=== PATIENT | male | born 1935 | race Caucasian/White ===

== ENCOUNTER → 2018-08-06 12:45 | Outpatient (CLI) | payer MEDICARE, SELFPAY ==
[2018-07-20 11:15] VITALS: BMI 38.9
--- NOTE | 2018-08-06 13:02 | ECHOCS_ITS ---
Reason For Study: CAD Procedure This was a 2D Doppler, Color Flow transthoracic echocardiogram. Contrast injection was performed. Exam performed in department. Left Ventricle Mildly dilated left ventricle. The estimated ejection fraction is 55-60 %. Stage 1 diastolic dysfunction. Septal motion consistent with IVCD. Posterior-Basal: Mildly hypokinetic. Infero-Basal: Mildly hypokinetic. Right Ventricle Mildly dilated right ventricle. Normal systolic function. Atria The left atrium is moderately enlarged. Normal right atrium. Normal atrial septum. Mitral Valve The mitral valve is structurally normal. No prolapse or stenosis seen. Tricuspid Valve Normal tricuspid valve. Mild (1+) tricuspid valve insufficiency. Right ventricular systolic pressure estimated to be 33 mmHg. Aortic Valve Trisinus/trileaflet aortic valve. Immobile non coronary cusp. Mild aortic stenosis. Pulmonic Valve Normal pulmonic valve. Great Vessels Normal aortic root. Normal arch. Normal inferior vena cava. Inferior vena cava collapse with sniff. Pericardium/Pleural No pericardial effusion. Medication 22 gauge I.V. with prn adaptor inserted into right arm. Diluted definity 3ml given slow IV push to enhance endocardial definition. MMode/2D Measurements & Calculations LVIDd: 5.0 cm IVSd: 1.1 cm LVOT diam: 2.2 cm LVIDs: 3.5 cm LVPWd: 1.2 cm RVDd: 4.1 cm FS: 30.3 % LVOT area: 3.9 cm2 Ao root diam: 3.4 cm LAV(MOD-bp): 110.9 ml Aortic Valve Planimetry: 1.7 cm2 LAV(MOD-bp) Indexed: 46.5 ml/m2 LAV(MOD-sp2): 80.8 ml LAV(MOD-sp4): 119.6 ml LA dimension(2D): 4.9 cm LA A4 area: 34.1 cm2 RA A4 area: 21.0 cm2 Time Measurements MV dec time: 0.34 sec Doppler Measurements & Calculations MV E max casper: 54.1 cm/sec Lat Peak E' Casper: 8.0 cm/sec Med Peak E' Casper: 4.2 cm/sec MV A max casper: 64.8 cm/sec E/E' lat: 6.8 E/E' med: 12.9 MV E/A: 0.84 Ao V2 max: 200.6 cm/sec LV V1 max: 87.0 cm/sec SV(LVOT): 66.0 ml Ao max P.1 mmHg LV V1 max P.0 mmHg Ao V2 mean: 149.2 cm/sec LV V1 mean P.8 mmHg Ao mean P.7 mmHg LV V1 mean: 64.3 cm/sec Ao V2 VTI: 40.9 cm LV V1 VTI: 17.0 cm BRITTANY(I,D): 1.6 cm2 BRITTANY(V,D): 1.7 cm2 PA V2 max: 140.9 cm/sec TR max casper: 259.4 cm/sec TR max P.2 mmHg Interpretation Summary Mildly dilated left ventricle. The estimated ejection fraction is 55-60 %. Stage 1 diastolic dysfunction. Posterior-Basal: Mildly hypokinetic Infero-Basal: Mildly hypokinetic Mildly dilated right ventricle. The left atrium is moderately enlarged. Mild (1+) tricuspid valve insufficiency. Right ventricular systolic pressure estimated to be 33 mmHg. Immobile non coronary cusp Mild aortic stenosis. The study was technically difficult. Contrast injection was performed. There is no comparison study available. Ordering Physician: Oscar Gonzales Referring Physician: JESSENIA FERRARI Performed By: Pia Romero, ADAM, RVT
== END ==
PROVIDERS: Referring Provider Internal Medicine Cardiovascular Disease; Visit Provider Internal Medicine Cardiovascular Disease
DX: R55 Syncope and collapse (principal)
CPT/HCPCS: 93306; Q9957; A4216; C8929

== ENCOUNTER → 2019-01-21 | Outpatient (CLI) | payer MEDICARE, SELFPAY ==
[2019-01-05 13:50] VITALS: BMI 39.9
--- NOTE | 2019-01-21 12:52 | STEWCON_ITS ---
Reason For Study: CAD Stress Results Protocol: Christian Protocol Maximum Predicted HR: 138 bpm Target HR: 117 bpm % Maximum Predicted HR: 77 % DurationHeart Rate Stage (mm:ss) (bpm) BP Comment Baseline 82 148/86No Chest Pain; Diluted Definity 4 ML Given Christian Protocol Stage I 3:00 94 160/78No Chest Pain; Moderate Dyspnea Christian Protocol Stage II 0:38 106 / No Chest Pain; Moderate to Severe Dyspnea Recovery 92 140/84No Chest Pain Stress Duration: 3:38 mm:ss Maximum Stress HR: 106 bpm METS: 5 Baseline Echocardiogram Findings The estimated ejection fraction is 25 %. Stress Echo Wall motion Data Resting WM Intermediate WM Stress WM Resting Wall Motion Wall Motion Stress Posterior-Basal: Severely Mid-Lateral : Mildly hypokinetic. hypokinetic. Anterior Mcdonough : Dyskinetic. Infero-Basal: Severely Hypokinetic. EKG Data The baseline ECG displays normal sinus rhythm. The patient exercised according to the regular Christian protocol for a total duration of 3:38. The maximum heart rate attained was 106 beats per minute. This was 77% of maximum predicted heart rate. The patient exercised into stage 2 of the Christian protocol. During stress, there were no ST or T wave changes noted to suggest ischemia. No clinical angina was noted. Doppler Measurements & Calculations TR max brenna: 359.8 cm/sec TR max P.8 mmHg Interpretation Summary The estimated ejection fraction is 25 %. Abnormal, submaximal treadmill echocardiogram. Positive for ischemia by echocardiographic criteria. No anginal symptoms noted. Moderate PVCs noted. Appropriate blood pressure response to exercise. Below average exercise capacity for age. Patient appeared to develop mid anterior lateral and apical hypokinesis superimposed on baseline severe inferior and posterior hypokinesis. Baseline ejection fraction about 25% which appeared to dilated peak exercise to maximum contractility of around 20%. Poor echo windows requiring Definity agent. Test terminated due to dyspnea. No complications. Patient referred to our office for elective left and right heart catheterization. The study was technically difficult. Contrast injection was performed. Ordering Physician: Oscar Gonzales Referring Physician: Burt De La Cruz Performed By: Angy Garcia RDCS
== END | disposition home or self-care (01) ==
LOC: CVS 12:45
PROVIDERS: Referring Provider Internal Medicine Cardiovascular Disease; Visit Provider Internal Medicine Cardiovascular Disease
DX: I25.10 Atherosclerotic heart disease of native coronary artery without angina pectoris (principal); R55 Syncope and collapse; I10 Essential (primary) hypertension; E78.5 Hyperlipidemia, unspecified
CPT/HCPCS: 93017; 93350; Q9957; A4216; C8928

== ENCOUNTER 2019-01-29 06:05 | Day surgery (SDC) | payer MEDICARE, SELFPAY ==
[2019-01-05 13:50] VITALS: BMI 39.9
--- NOTE | 2019-01-22 16:00 | RAD_ITS ---
STUDY: X-RAY CHEST REASON FOR EXAM: Male, 83 years old. Shortness of breath, pulmonary hypertension TECHNIQUE: Frontal and lateral views of the chest were performed COMPARISON: None. FINDINGS: The lungs are clear and expanded. There is no demonstrated pleural abnormality. There is mild to moderate cardiomegaly. Pacemaker is present in the right upper chest with 2 intact leads terminating in the right atrium and right ventricle. Pulmonary khoa are enlarged. Normal visualized thoracic spine. Normal visualized ribs, clavicles, and shoulders. There is no demonstrated abnormality of the visualized soft tissue structures of the upper abdomen. RAD/Chest PA and Lateral IMPRESSION: 1. Cardiomegaly. 2. No acute findings. Electronically Signed: Charo Nicole, at 16:18 EDT Tel , Service support ,
[2019-01-22 17:13] VITALS: BMI 39.9
[2019-01-22 17:24] LABS: International Normalized Ratio 1.1; Prothrombin Time (Protime)PT. 14.1 SECONDS (11.7-14.9)
[2019-01-22 17:25] LABS: Anion Gap 9 (5-15); BUN 28 mg/dL (7-18); BUN/Creat Ratio 16.2 RATIO (10-20); Calcium,Total 8.8 mg/dL (8.5-10.1); Chloride 108 mmol/L (98-107); Creatinine, Serum 1.73 mg/dL (0.70-1.30); EST Glomerular Filtration Rate 40 mL/min (>60); Est Glom Filt Rate - Afr Amer 49 mL/min (>60); Glucose 117 mg/dL (74-106); Partial Thromboplast Time 30.3 Seconds (24.1-36.2); Potassium 3.9 mmol/L (3.5-5.1); Sodium Level 143 mmol/L (136-145)
[2019-01-22 17:32] LABS: Hematocrit 35.1 % (40-54); Hemoglobin 11.3 g/dL (13.0-16.5); Mean Corp Hgb Conc 32.2 g/dL (32-36); Mean Corpuscular Hgb 29.6 pg (27.0-32.0); Mean Corpuscular Volume 91.9 fL (80-94); Mean Platelet Vol. 11.4 fl (6.2-12.0); Platelet Count 209 K/mm3 (150-450); RBC Distribution Width CV 13.2 % (11.6-14.6); Red Blood Count 3.82 M/mm3 (4.6-6.2); White Blood Count 8.4 K/mm3 (4.4-11.0)
[2019-01-29] VITALS (19 sets, daily range): BP systolic 113–164; BP diastolic 56–85; PULSE 63–83; RESP 14–25; TEMP 36.9–37.3; O2SAT 92–98; BMI 40.5; BMI 40.4
--- NOTE | 2019-01-29 09:10 | HP.PCM_ITS ---
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 At that time, my former partner Dr. Keller, performed an emergent successful balloon angioplasty and bare metal stenting to the right coronary artery ?2. At that time he received a 4.0X 28 Zeta stent, followed distally with a 4.0X 13 Zeta. Patient's had a 70% PDA lesion which was balloon angioplastied only. He received an Angio-Seal. His remaining coronary arteries appear to be free of significant disease. He was then on 06/10/12 for which he had an episode of wide complex tachycardia in the face of albuterol aerosol treatments. He was asymptomatic and remained symptom-free and was treated medically. Patient had a syncopal event in late November 2016 after jumping into a pool. He sought medical attention at [facility] underwent dual-chamber pacemaker placement on the right side by Dr. Williamson. Since that time he feels much better, has syncopal episodes. he is taking and tolerating his medicines well. Pt denies chest, arm, jaw, or neck discomfort. His exercise tolerance is stable. Pt denies symptoms of CHF, palpitations, lightheadedness, dizziness, near syncopal or syncopal episodes. Pt denies edema or claudication issues. Pt. denies orthopnea, PND, fever, chills, blood in urine, blood in stool, myalgia, or unexplainable fatigue. 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 He is taking and tolerating his medicines well. In our office today's blood pressure is 120/60, pulse is 64 and regular. Physical exam is as below. Repeat lipids are pending. Pacer evaluation pending. Intake Vital Signs 01/05/19 Height 5 ft 10 in 01/05/19 Weight: 278 lb 5 oz 01/05/19 Body Mass Index (BMI) 39.9 01/05/19 Blood Pressure 120/60 01/05/19 Blood Pressure Location Lt brachial 01/05/19 Blood Pressure Position Sitting 01/05/19 Respiratory Rate 20 H 01/05/19 Pulse Rate 64 01/05/19 Pulse Source Auscultation Intake Visit Reasons: 4 M Scullion Chief Required: No Accompanied by: Is patient in pain?: No Allergies No Known Allergies Allergy (Verified 07/20/18 11:26) Medications cholecalciferol (vitamin D3) 1,000 unit capsule 1,000 unit PO QDAY 09/01/17 [History Confirmed 01/05/19] multivit with min-folic acid-lutein 400 mcg-250 mcg chewable tablet tab PO 09/01/17 [History Confirmed 01/05/19] sitagliptin 50 mg-metformin 1,000 mg tablet 1 tab PO BID 09/01/17 [History Confirmed 01/05/19] vitamin E mixed 400 unit capsule unit PO 09/01/17 [History Confirmed 01/05/19] aspirin 325 mg tablet 325 mg PO QDAY 01/02/18 [History Confirmed 01/05/19] amlodipine 10 mg tablet 10 mg PO QDAY #90 tab 01/05/19 [Rx Confirmed 01/05/19] atorvastatin 40 mg tablet 40 mg PO DAILY #90 tab 01/05/19 [Rx Confirmed 01/05/19] carvedilol 6.25 mg tablet 6.25 mg PO BID #180 tab 01/05/19 [Rx Confirmed 01/05/19] lisinopril 20 mg-hydrochlorothiazide 25 mg tablet 1 tab PO QDAY #90 tab 01/05/19 [Rx Confirmed 01/05/19] [facility] Medical History (Updated 01/02/18 @ 13:03 by SELINA Johnson) Syncope and collapse (Chronic ~11/2016) Hypertension (Chronic) Hyperlipidemia (Chronic) Atherosclerosis of coronary artery of pokagon heart without angina pectoris (Chronic) Old inferior wall myocardial infarction (Chronic) Type 2 diabetes mellitus without complications (Chronic) Complete heart block (Chronic) Arthritis (Chronic) Surgical History (Updated 09/01/17 @ 07:30 by Kailey Davies) History of coronary artery stent placement (Chronic ~05/18/02) Presence of cardiac pacemaker (Chronic ~11/2016) History of bilateral knee replacement (Chronic) History of cataract surgery (Chronic) Social History (Updated 01/05/19 @ 14:02 by Oscar Gonzales MD) Smoking Status: Former smoker how long ago did patient quit smokin alcohol intake: never caffeine: Yes Type: carbonated beverages Number of servings: 2 ROS Const Const: Positive for other; negative for fatigue, weakness, body ache, fever(s), headache(s), chills, frequent falls, night sweats, daytime sleepiness, difficulty sleeping, excessive sweating, weight gain, weight loss, increased appetite, poor appetite or anorexia Eyes Eyes: Negative for blind spots, loss of peripheral vision, transient loss of vision, blurry vision, change in vision, double vision, floaters, tunnel vision or other ENT ENT: Negative for headache(s), dizziness, hearing loss, tinnitus, Nosebleed/epistaxis, balance problems, post nasal drip, lip swelling, tongue swelling, bleeding gums, hoarseness, neck pain, dry mouth or other Cardio Chest Pain: No Resp Respiratory: Negative for SOB with activity, SOB at rest, SOB orthopnea\SOB lying down, Coughing up blood/hemoptysis, chest congestion, pain on inspiration, snoring, stridor, wheezing, crackles, paroxysmal nocturnal dyspnea or other GI GI: Negative nausea, vomiting, heartburn, constipation, belching, bloating, cramping, vomiting blood/hematemesis, bright, red blood in stools, black,tarry stools, loose stools, Difficulty Swallowing or other : Negative for hematuria, frequent nighttime urination/ nocturia, erectile dysfunction or abnormal vaginal bleeding Musc Musc: Negative for muscle aches/ myalgia, muscle weakness, joint pain or balance problems Skin Skin: Negative redness, non-healing lesions, rash, unusual bruising, skin ulcer, wounds, jaundice or other Neuro Neuro: Negative for dizziness, lightheadedness, near syncope, syncope, orthostatic symptoms, frequent falls, headache(s), weakness, confusion, memory loss, restless legs, blurry vision, double vision, vertigo, seizures, lack of coordination or other Bryan Hematologic/Lymphatic: Negative for easy bleeding, easy bruising, enlarged lymph nodes or other Endo Endo: Negative for fatigue, cold intolerance, heat intolerance, excessive sweating, flushing, increased thirst/drinking, increased hunger, hair loss, hair growth or other Psych Psych: Negative for anxiety, depression, thoughts of harming anyone, thoughts of harming yourself, visual hallucinations, panic attacks or audible hallucinations Allergy Allergy/Immunology: Negative for throat swelling, Negative for tongue swelling, Negative for hives, Negative for rash, Negative for lip swelling Cardiology Exam Const Appearance: cooperative, healthy appearing and no acute distress Nutritional Appearance: well nourished Orientation: alert, oriented x3 and oriented to person Head Head: normal to inspection, normocephalic and atraumatic Nose: external nose normal Face and Sinus: face symmetric Mouth: oral mucosae normal Eyes General: appearance normal, both eyes and all related structures Eyelids: eyelids normal Conjunctivae: conjunctivae normal Pupils: PERRL and normal by confrontation EOM: EOM intact bilaterally Neck Neck: normal visual inspection and full ROM Carotids: normal carotid upstroke Chest Chest inspection: normal inspection of the chest Auscultation: Bilateral: Clear to Auscultation Cardio Palpation: normal PMI Rate: regular rate Rhythm: regular rhythm Heart sounds: S1 normal and S2 normal GI GI: normal to inspection, no hepatosplenomegaly and bowel sounds present Neuro General: alert, awake, oriented x3, CN's II-XI intact bilaterally and moves all extremities Skin Skin: no rashes or lesions noted Extremities Pulses: Normal: Right Femoral Pulse, Left Femoral Pulse, Right Dorsalis Pedis Pulse, Left Dorsalis Pedis Pulse, Right Posterior Tibial Pulse, Left Posterior Tibial Pulse, Right Radial Pulse, Left Radial Pulse Lower Extremity Edema: None: Bilateral Psych Psychological: normal affect Assessment & Plan 1. Atherosclerosis of pokagon coronary artery of pokagon heart without angina pectoris I25.10 [id number]-RCA 4 x 28 mm Zeta Stent and 4 x 13 mm Zeta Stent 05/18/2002 Plan 1. 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 If he has any evidence of ischemia particularly inferior lateral wall where his previous bare-metal stents reside in the right coronary artery, I would have a low threshold for repeat catheterization. In the meantime we will continue aspirin, amlodipine, Coreg and Zestoretic. Orders Orders: Lipid Profile Today Liver Profile Today Stress Test Echo W/Contrast Today 2. Pure hypercholesterolemia E78.00 Plan 2. Hyperlipidemia: We are awaiting a repeat lipid profile. His LDL should be less than 70. Continue Lipitor. 3. Return office in 4 months with either myself or an FINANCIAL FOUNDATIONS REPRESENTATIVE. This note was generated using a voice recognition system and there may be incorrect words, spelling or punctuation that were not noted when reviewing the office note prior to saving. Plan Detail Other Orders Orders: Lipid Profile Today E78.5 Liver Profile Today E78.5 Stress Test Echo W/Contrast Today I25.2, Z95.5 Other Medications Refilled: amlodipine 10 mg PO QDAY 90 tabs 3RF atorvastatin 40 mg PO DAILY 90 tabs 3RF carvedilol (Coreg) 6.25 mg PO BID 180 tabs 3RF lisinopril-hydrochlorothiazide 20-25 mg 1 tab PO QDAY 90 tabs 3RF Follow Up +4M (Gonzales or FINANCIAL FOUNDATIONS REPRESENTATIVE) Coding Level of Care Code Off vis,est,level 3 Diagnoses Atherosclerosis of pokagon coronary artery of pokagon heart without angina pectoris I25.10 ??Coronary Disease-Associated Artery/Lesion type: pokagon artery Pure hypercholesterolemia E78.00 ??Hyperlipidemia type: pure hypercholesterolemia Coding Level of Care Code Off vis,est,level 3 Diagnoses Atherosclerosis of pokagon coronary artery of pokagon heart without angina pectoris I25.10 ??Coronary Disease-Associated Artery/Lesion type: pokagon artery Pure hypercholesterolemia E78.00 ??Hyperlipidemia type: pure hypercholesterolemia Supplemental Info Supplemental Information Diagnostics Echocardiogram 08/06/18 Pacemaker Check 10/29/18 01/05/19 1402 <Electronically signed by Oscar Gonzales MD> Date _ Oscar Gonzales MD Cosigner Signature: Date (if applicable) CC: JESSENIA FERRARI ~ Interventional cardiology addendum: Patient seen and examined prior to catheterization. No changes to history and physical. Abnormal stress test indication for catheterization. LV dysfunction and possibly under appreciated pulmonary hypertension reason for right heart catheterization. We will proceed with left and right heart catheterization. Results to follow.
[2019-01-29] MEDS: Nitroglycerin Infusion 250 ML 3 MG CONT INF (10:45)
[2019-01-29 10:46] LABS: Base Excess -4 mmol/L (-2 to +2); Bicarbonate 21.2 mmol/L (22-26); Blood Gas Specimen Type ART; PO2 83 mmHG (75-100); SO2 96 % (95-99); Total Carbon Dioxide 22 mmol/L; pCO2 35.7 mmHg (35-45); pH 7.38 (7.35-7.45)
[2019-01-29 10:46] LABS: Blood Gas Specimen Type VEN; VBG BASE EXCESS -3 mmol/L (-1.0-3.5); VBG Bicarbonate 23 mmol/L (22-26); VBG Oxygen Content 24 mmol/L (23-33); VBG PO2 33 mmHg (25-40); VBG SO2 60 % (50-70); VBG pCO2 40.7 mmHg (41-51); VBG pH 7.35 (7.32-7.42)
[2019-01-29 10:46] LABS: ACT Activated Clotting Time 169 sec (74-137)
[2019-01-29 10:46] LABS: Blood Gas Specimen Type VEN; VBG BASE EXCESS -2 mmol/L (-1.0-3.5); VBG Bicarbonate 23 mmol/L (22-26); VBG Oxygen Content 24 mmol/L (23-33); VBG PO2 32 mmHg (25-40); VBG SO2 60 % (50-70); VBG pCO2 40.3 mmHg (41-51); VBG pH 7.36 (7.32-7.42)
[2019-01-29 10:46] LABS: ACT Activated Clotting Time 0 sec (74-137)
--- NOTE | 2019-01-29 10:49 | EKG12_ITS ---
Test Reason : POST STENT Blood Pressure : / mmHG Vent. Rate : 124 BPM Atrial Rate : 124 BPM P-R Int : 000 ms QRS Dur : 012 ms QT Int : 182 ms P-R-T Axes : 000 000 -73 degrees QTc Int : 261 ms AV Sequential Pacemaker Abnormal ECG Confirmed by EMMA ROBERTO, ELIZABETH ([id number]), international editorial producer CHEVY VICTOR ([id number]) on 02/03/2019 2:43:04 PM Referred By: Oscar Gonzales Confirmed By:ELIZABETH CARTER MD
[2019-01-29] MEDS: 0.9% Normal Saline 1,000 ML 150 ML IV (11:28)
[2019-01-29] MEDS: Losartan Potassium 50 MG Tablet PO ×2 (12:05→21:08)
[2019-01-29 12:41] LABS: Bedside Glucose 173 mg/dL (70-110)
--- NOTE | 2019-01-29 13:50 | CRPHASE1 ---
Patient Communication PHII Cardiac Rehab Discussed with Patient:: Yes Guide to Cardiac Rehab Given to Patient:: Yes Cardiac Rehab Facility Choice List Given to Patient:: Yes - [facility] Choice Program Other:: Communication Given to CR, With permission faxed order and referral information - [facility] Traffic Checker:: Oscar Gonzales Refer Phase II Cardiac Rehab:: Yes Sessions:: 36 sessions - 3 days/wk, 12 weeks Phase I Charge:: Level I - Education Risk Factors/Lifestyle Smoking Status: Former smoker - quit 1955 Hx Hypertension: Yes Hx Diabetes Mellitus Type 2: Yes Hx Dyslipidemia: Yes Hx Obesity: Yes Height: 5 ft 10 in Weight:: 282 lb BMI: 40.4 Risk Factor for Sedentary Lifestyle: Moderate Risk Past Cardiac Illness: Coronary Artery Disease, Previous PCI w/Stent Phase I Education Given On:: [place], Nutrition, Antiplatelet medication, CHF, Diabetes - Type II Issues Affecting Care:: None Knowledge of Condition:: Yes Learning Preferences: Verbal, Written, Audio/Visual, Demonstration Medical/Surgical History Angina:: Yes CAD:: Yes Diabetes Type II:: Yes Hypertension:: Yes Dyslipidemia:: Yes Other Medical/Surgical Issues:: bilateral knee replacements PTCA:: Yes Discharge/Home/Social Eval Marital Status: Cardiac Rehabilitation Info Cardiac Rehabilitation Program Information: Cardiac Rehabilitation is important for patients like you who are recovering from a heart problem. Cardiac rehabilitation programs are recognized as integral to the continued care of the patient with coronary heart disease. The cardiac rehabilitation program is designed to optimize a patient's physical, psychological, and social functioning. Health acute care nursing assistant work in cardiac rehabilitation programs and assist you with getting the treatments you need to get stronger and healthier - like exercise, healthy eating habits, and medications. Cardiac rehabilitation has been show to help people with heart problems live longer and have better life enjoyment than people who do not go to cardiac rehabilitation. Please contact the Cardiac Rehabilitation Program at [facility] at in two weeks if you have not heard from them.
--- NOTE | 2019-01-29 13:57 | CRPH1.INSTRU ---
General Education CAD and cardiac anatomy and function:: Patient communicates acknowledgment, Needs reinforcement Explanation of diagnoses and procedures:: Patient communicates acknowledgment, Needs reinforcement Sign/Symptoms of IL:: Patient communicates acknowledgment, Needs reinforcement Antiplatelet therapy: Patient communicates acknowledgment, Needs reinforcement Proper use of NTG-SL: Patient communicates acknowledgment, Needs reinforcement Emergency procedures and activation of EMS: Patient communicates acknowledgment, Needs reinforcement Compliance of all prescribed medications: Patient communicates acknowledgment, Needs reinforcement Smoking Patient Nicotine/Smoking Risk Factors Are:: Non-smoker Recommendations Include:: Previous smoker; encourage continued cessation Nicotine/Smoking Response Code:: Patient communicates acknowledgment Dyslipidemia Patient Dyslipidemia Risk Factors Are:: Total Cholesterol, Triglycerides, HDL, LDL Recommendations Include:: Lipid profile not available, Reviewed NCEP/ATP guidelines, Therapeutic Lifestyle Change dietary guidelines Dyslipidemia Response Code:: Patient communicates acknowledgment, Needs reinforcement Overweight/Obesity Patient Overweight/Obesity Risk Factors Are:: Obesity - > or = 30 Recommendations Include:: Weight loss of 5-10%, Reduced calorie diet, Exercise 5-7 times/week Overweight/Obesity:: Patient communicates acknowledgment, Needs reinforcement Hypertension Recommendations Include:: BP <130/80 if diabetic, DASH dietary guidelines, Decrease/maintain normal body weight, Moderation of ETOH Hypertension:: Patient communicates acknowledgment, Needs reinforcement Heart Disease Patient Heart Disease Risk Factors Are:: Previous cardiac event Recommendations Include:: Educated family members of their risk, Educated family members of importance of prevention of heart disease Heart Disease Response Code:: Patient communicates acknowledgment, Needs reinforcement Diabetes Patient Diabetes Risk Factors Are:: Elevated blood sugars Recommendations Include:: Maintain fasting blood sugars 70-110 md/dL, Maintain HgbA1c of 6% or less, Monitor blood sugar as prescribed, Diabetic dietary guidelines, Decrease/maintain body weight Diabetes:: Patient communicates acknowledgment, Needs reinforcement Sedentary Patient Sedentary Risk Factors Are:: Lack of regular exercise Recommendations Include:: Aerobic exercise 5-7 times/week for 20-30 minutes continuously, Benefits of regular exercise, Discussed home walking program, Monitored Outpatient Cardiac Rehab Sedentary Response Code:: Patient communicates acknowledgment, Needs reinforcement Stress Patient Stress Risk Factors Are:: Patient denies stress as a risk factor Recommendations Include:: Identification of stressors, and assessment of coping skills, Stress management techniques Stress Response Code:: Patient communicates acknowledgment, Needs reinforcement
--- NOTE | 2019-01-29 15:27 | NURSING ---
Patients bedrest completed at 1500. Patient ambulated to bathroom and the to recliner. Patient tolerated without complication.
[2019-01-29] MEDS: amLODIPine 10 MG Tablet PO (15:45)
[2019-01-29] MEDS: Isosorbide Mononitrate 30 MG Tablet PO (15:46)
[2019-01-29] MEDS: Furosemide 40 MG Tablet PO (15:46)
[2019-01-29 16:51] LABS: Bedside Glucose 214 mg/dL (70-110)
--- NOTE | 2019-01-29 16:55 | PCM.DC.CCA ---
Discharge Diet: Low fat/ Low Cholesterol Discharge Activity: Return to Normal Activity May shower in (days): 1 - No tub baths for 5 days Lifting Restrictions: Do not lift anything greater than 10 pounds for 3 days Call your doctor if your incision/area has: Continuous Slow Oozing, Sudden Increased Bleeding, Increased Pain/ Swelling, Increased Redness, Foul Smelling Discharge, Swelling at the incision site Call your doctor if you observe: Fever of 101 or Higher, Shortness of breath, Chest pain Remove Dressing in (days):: 1 Cleanse incision/area with: Soap & Water Additional Instructions: He will remain on Aspirin and Plavix therapy. You are scheduled for an office appointment with Dr. Gonzales on February 12, 2019 at 1:30 PM. If any when asked you to stop your Plavix therapy, please call the [facility] office first at [phone]. If you have any questions or concerns, please call the [facility] office. Allergies/Adverse Reactions: Allergies No Known Allergies Allergy (Verified 07/20/18 11:26) Medications to take at Discharge cholecalciferol (vitamin D3) 1,000 unit capsule 1,000 unit PO QDAY 09/01/17 multivit with min-folic acid-lutein 400 mcg-250 mcg chewable tablet 1 tab PO QODAY 09/01/17 sitagliptin 50 mg-metformin 1,000 mg tablet 1 tab PO BID 09/01/17 vitamin E mixed 400 unit capsule 400 unit PO QODAY 09/01/17 amlodipine 10 mg tablet 10 mg PO QDAY #90 tab 01/05/19 atorvastatin 40 mg tablet 40 mg PO DAILY #90 tab 01/05/19 carvedilol 6.25 mg tablet 6.25 mg PO BID #180 tab 01/05/19 lisinopril 20 mg-hydrochlorothiazide 25 mg tablet 1 tab PO QDAY #90 tab 01/05/19 aspirin 81 mg tablet,delayed release 81 mg PO DAILY #30 tab 01/22/19 clopidogrel 75 mg tablet 75 mg PO DAILY #30 tab 01/22/19 Primary Care Physician: Burt De La Cruz [Primary Care Provider] - Test Results: Test results from this visit will be discussed in further detail at your follow-up appointment, if applicable. Please Follow Up With: Dr. Gonzales When: 02/12/2019 at 1:30 Proposed Discharge Date: 01/30/19 Cardiac Rehabilitation Info Cardiac Rehabilitation Program Information: Cardiac Rehabilitation is important for patients like you who are recovering from a heart problem. Cardiac rehabilitation programs are recognized as integral to the continued care of the patient with coronary heart disease. The cardiac rehabilitation program is designed to optimize a patient's physical, psychological, and social functioning. Health intensive care specialist work in cardiac rehabilitation programs and assist you with getting the treatments you need to get stronger and healthier - like exercise, healthy eating habits, and medications. Cardiac rehabilitation has been show to help people with heart problems live longer and have better life enjoyment than people who do not go to cardiac rehabilitation. Please contact the Cardiac Rehabilitation Program at [facility] at in two weeks if you have not heard from them.
[2019-01-29] MEDS: Atorvastatin Calcium 40 MG Tablet PO (21:08)
[2019-01-29] MEDS: Carvedilol 12.5 MG Tablet PO (21:08)
[2019-01-29 22:05] LABS: Bedside Glucose 166 mg/dL (70-110)
[2019-01-30] VITALS (11 sets, daily range): BP systolic 119–144; BP diastolic 50–84; PULSE 64–88; RESP 16–27; TEMP 36.8–37.4; O2SAT 91–96
[2019-01-30 05:21] LABS: Hematocrit 31.9 % (40-54); Mean Corp Hgb Conc 31.3 g/dL (32-36); Mean Corpuscular Hgb 28.8 pg (27.0-32.0); Mean Corpuscular Volume 91.9 fL (80-94); Mean Platelet Vol. 10.7 fl (6.2-12.0); Platelet Count 200 K/mm3 (150-450); RBC Distribution Width CV 13.4 % (11.6-14.6); RBC Distribution Width SD 45.2 fl (35.1-43.9); Red Blood Count 3.47 M/mm3 (4.6-6.2)
[2019-01-30 05:43] LABS: ALB/GLOB Ratio 0.9 RATIO (0.9-2.4); AST(SGOT) 10 U/L (15-37); Alanine Aminotransfer ALT/SGPT 17 U/L (16-61); Albumin, Serum 2.9 g/dL (3.2-5.0); Alkaline Phosphatase 67 U/L (45-117); Anion Gap 8 (5-15); BUN 24 mg/dL (7-18); BUN/Creat Ratio 13.8 RATIO (10-20); Calcium,Total 8.2 mg/dL (8.5-10.1); Chloride 109 mmol/L (98-107); Cholesterol 111 mg/dL (200); Creatinine, Serum 1.74 mg/dL (0.70-1.30); EST Glomerular Filtration Rate 40 mL/min (>60); Est Glom Filt Rate - Afr Amer 49 mL/min (>60); Globulin 3.3 g/dL (2.2-4.2); Glucose 133 mg/dL (74-106); High Density Lipoprotein 30 mg/dL; Potassium 4.3 mmol/L (3.5-5.1); Protein, Total 6.2 g/dL (6.4-8.2); Sodium Level 142 mmol/L (136-145); Triglycerides 81 mg/dL; Very Low Density Lipoprotein 16 mg/dL (5-40)
[2019-01-30 06:55] LABS: Bedside Glucose 146 mg/dL (70-110)
[2019-01-30] MEDS: amLODIPine 10 MG Tablet PO (09:10)
[2019-01-30] MEDS: Isosorbide Mononitrate 30 MG Tablet PO (09:10)
[2019-01-30] MEDS: Furosemide 40 MG Tablet PO (09:10)
[2019-01-30] MEDS: Losartan Potassium 50 MG Tablet PO (09:11)
[2019-01-30] MEDS: Clopidogrel Bisulfate 75 MG Tablet PO (09:11)
[2019-01-30] MEDS: Carvedilol 12.5 MG Tablet PO (09:11)
[2019-01-30] MEDS: Aspirin E.C. 81 MG Tablet PO (09:11)
--- NOTE | 2019-01-30 10:49 | EKG12_ITS ---
Test Reason : AM EKG Blood Pressure : / mmHG Vent. Rate : 104 BPM Atrial Rate : 104 BPM P-R Int : 000 ms QRS Dur : 162 ms QT Int : 286 ms P-R-T Axes : 000 -80 -08 degrees QTc Int : 376 ms Demand pacemaker; interpretation is based on intrinsic rhythm Possible Atrial Fibrillation Left axis deviation Left bundle branch block Abnormal ECG When compared with ECG of 29-JAN-2019 10:47, MANUAL COMPARISON REQUIRED, DATA IS UNCONFIRMED Confirmed by MAYNOR ROBERTO, JOHANNA ([id number]), movie editor LUTHER PIMENTEL ([id number]) on 02/05/2019 1:27:43 PM Referred By: Oscar Gonzales Confirmed By:ROSALINE MCGUIRE MD
--- NOTE | 2019-01-30 17:16 | PCM.PN.CARD ---
Subjectve: Doing well. No significant overnight events. Objective: Vital Signs Temp Pulse Resp BP Pulse Ox 98.3 F 88 17 119/84 H 94 01/30/19 12:06 01/30/19 12:06 01/30/19 12:06 01/30/19 12:06 01/30/19 12:06 Oxygen Flow Rate (L/min) 2 Oxygen Delivery Method Room Air Weight: 282 lb 13.649 oz Body Mass Index (BMI) 40.4 Intake and Output for Last 24 Hours 01/28/19 01/29/19 01/30/19 23:59 23:59 23:59 Intake Total 1021.75 / 1021.75 300 / 300 Output Total 500 / 500 400 / 400 Balance 521.75 / 521.75 -100 / -100 General: Awake, Alert, Oriented x 3 HEENT: Atraumatic Oral: Moist Mucosa Neck: Supple Lungs: Clear to auscultation Cardiovascular: Normal S1, Normal S2 Abdomen: Soft Extremities: No edema Skin: No Rashes Psych/Mental Status: Appropriate 01/30/19 05:05: WBC 10.0, RBC 3.47 L, Hgb 10.0 L, Hct 31.9 L, MCV 91.9, MCH 28.8, MCHC 31.3 L, Plt Count 200, MPV 10.7 01/30/19 05:05: Sodium 142, Potassium 4.3, Chloride 109 H, Carbon Dioxide 25.0, Anion Gap 8, BUN 24 H, Creatinine 1.74 H, Est GFR (MDRD) Af Amer 49 L, Est GFR (MDRD) Non-Af 40 L, BUN/Creatinine Ratio 13.8, Glucose 133 H, Calcium 8.2 L, Total Bilirubin 0.50, Triglycerides 81, Cholesterol 111, LDL Cholesterol 65, VLDL Cholesterol 16, HDL Cholesterol 30 L Rhythm: EKG: ECHO: Stress Test: Cardiac Cath: PCI: CT Surgery: Holter monitor: EPS: PPM: CXR: Chest CT Scan: Medical Necessity - Tobacco Use Smoking Status: Former smoker - quit 1955 Assessment/Plan 1. Coronary artery disease: Status post PCI. Doing well. Can be discharged home and he can follow-up with Dr. Gonzales as an outpatient.
--- NOTE | 2019-02-11 09:58 | CL.I_ITS ---
Patient Name: CAM NOLAND Study Date: 01/29/2019 Performing: Oscar Gonzales MD Ht: 71 inches 180.34 cm : 1935 Wt: 282.81 lbs 128.28 kg Age: 83 Gender: male BSA: 2.44 PROCEDURE(S) PERFORMED MB17-OPC/LHC/COR/LV FT34-AXP W OR WO PTCA, SINGLE CORONARY ARTERY CLINICAL PROFILE AND CO-MORBIDITIES Indications: Stable Known CAD, LV Dysfunction Heart Failure: NYHA Class: 2, Newly Diagnosed: Yes, Heart Failure Type: Systolic Stress/Imaging Date: 01/22/2019 Stress Echocardiogram: Positive Intermediate Risk Angina Classification Anginal Classification w/in 2 Weeks: No symptoms CAD Presentations: No Sxs, no angina. Other: Dyspnea on exertion Comorbidities/Risk Factors: Hypertension Dyslipidemia Prior PCI Diabetes Mellitus: Diabetes Therapy: Oral CONCLUSIONS Double vessel CAD of the RCA and LAD Non obstructive coronary arteries The patient has pulmonary hypertension which is moderate to severe. Right heart pressures - moderately to severely elevated Successful PTCA/JOHN of mid LAD with a 4.0 x 32 Promus Synergy, post dilated proximally with a 4.0 x 8 NC Balloon; 75%-->0%, no dissection. RECOMMENDATIONS Referred for immediate PCI Management as per referring Composite Mechanic Highly recommend quitting all tobacco products Follow up with primary log chipper operator Risk factor modification ASA Indefinitley Plavix for at least 12 months Routine post interventional care Refer for Outpatient Cardiac Rehab Manual sheath removal per protocol Follow up with Dr. Gonzales Successful Mynx Control closure of RFA. Repeat echo after cardiac rehab; if LV function remains severe pt may need upgrade to AICD. DESCRIPTION OF PROCEDURE The patient arrived to the procedure lab. The risks and benefits of the procedure as well as a full d escription of our services here and lack of surgical backup were fully explained to the patient and/o r their significant other prior to the catheterization. The Timeout was completed, verifying the liliam ect patient and procedure. The patient's procedural site was prepped and draped in the usual fashion. Local anesthetic was given subcutaneously to right groin region with Lidocaine 2%. Using a modified Seldinger technique, arterial access was obtained via the right femoral artery, a 4Fr sheath was inse rted. Venous access was obtained via the right femoral vein, a 7Fr sheath was inserted. A 7Fr thermal dilution catheter was inserted and right heart pressures were recorded, it was then advanced to PA p osition for cardiac outputs. O2 saturations were then obtained. Thermal dilution cardiac outputs were then recorded. LV to AO pullback pressures were then recorded. Simultaneous pressures were then recorded. The Thermal dilution catheter was then removed. Left Ventriculography was perform ed in GARCIA projection using a 4 Fr. Pigtail catheter. Left Coronary Artery selective angiography was p erformed in multiple views using a 4 Fr. JL5 catheter. Right Coronary Artery selective angiography wa s then performed in multiple views using a 4 Fr. 3DRC catheterThe images were reviewed and options di scussed. A decision was then made to proceed with an Intervention, IVUS or other adjunct procedure. Arterial sheath was exchanged for a 6 Fr x 45cm Sheath. EBU 3.75 Guide catheter was inserted and engaged into the LCA. BMW Guide wire was advanced to the LAD. BMW Guide wire was inserted as a alena wire into Diag 1 2.0 x 12 Emerge Balloon catheter was inserted. Balloon catheter was advanced across lesion in the LAD, mid. PTCA balloon inflated at 10 atms for 10 secs. PTCA balloon inflated at 10 krissy s for 10 secs. Angiogram performed post balloon dilatation. 4.0 x 32 Synergy Drug Eluting stent was a dvanced across the lesion in the LAD, mid. Angiogram performed pre stent deployment. Angiogram perfor med post stent deployment. 4.0 x 8 NC Emerge Balloon catheter was inserted post stent. Contrast was i njected through the sheath and the Right Iliac and Femoral artery were assessed for possible closure device. The arterial sheath was pulled and a Mynx closure device was deployed for hemostasis. The ve nous sheath was then pulled and manual compression applied until hemostasis achieved CORONARY ANGIOGRAPHY DOMINANCE: Right Dominant LEFT HEART ASSESSMENT Left Ventricular Ejection Fraction: by LV Gram 25-30 % Depressed Left Ventricular systolic function Elevated Left Ventricular End Diastolic Pressure Inferior Basal Hypokinesis - Severe. Anterior Hypokinesis - Severe RIGHT HEART ASSESSMENT Thermal CO: 6.51 Thermal CI: 2.67 Lu CO: 5.87 Lu CI: 2.41 PW: 33/37 30 PA: 54/20 34 RV: 67/6 16 RA: 14/14 11 PVR: 49 Aortic Valve Area: >3.50 Aortic Valve Index: 1.43 Aortic Valve Mean Gradient: 17.4 Mitral Valve Area: 2.72 Mitral Valve index: 1.11 Mitral Valve Mean Gradient: 13.1 Pulmonary Hypertension Moderate to severe Right Heart pressures - elevated Pulmonary Hypertension Moderate LEFT MAIN: Mild luminal irregularities less than 30% LEFT ANTERIOR DESCENDING ARTERY: MID LAD: 75 % Stenosis CIRCUMFLEX ARTERY: Mild luminal irregularities less than 30% OM 1: Proximal - Mild luminal irregularities less than 30% RIGHT CORONARY ARTERY: is occluded INTERVENTION INFORMATION LESION SITE: LAD (Mid) Lesion Complexity: High/C, lesion at bifurcation: No, thrombus present: No, lesion length: 32 mm, cul prit lesion: Yes Pre Stenosis: 75 % Pre intervention LAVON flow: 3 PROCEDURE: Drug Eluting Stent with pre and post dilatation Post Stenosis: 0 % Post intervention LAVON flow: 3 Lesion Devices: Collazo .014 BMW Pocola Straight 190cm Collazo .014 BMW Pocola Straight 190cm Erik Sci Synergy MR JOHN 4.00x32 Erik Sci NC EMERGE MR 4.00x08 BALLOON COMPLICATIONS No Complications PROCEDURE MEDICATIONS Oxygen: 2 L/min via nasal cannula Nitro 200 mcg IC 01/29/2019 09:46:25 Nitro 300 mcg IC 01/29/2019 09:57:57 Nitro 200 mcg IC 01/29/2019 10:00:33 Nitro glycerin 25mg / 250ml D5W @ 5 mcg/min IV started 01/29/2019 10:09:01 IV Bolus: .9 NaCl 350 ml total 01/29/2019 10:18:15 SUMMARY OF HEMODYNAMIC DATA Time AIR REST ECG 07:08:40 RA 14/14 (11) SV 09:23:19 RV 67/6, 16 09:23:32 PW 33/37 (30) PV 09:24:33 PW 22/35 (21) 09:24:49 PA 54/20 (34) PA 09:25:02 PA 54/18 (34) 09:27:00 LV 162/2, 25 09:29:34 LV 169/0, 21 09:29:40 LV 156/3, 17 09:29:58 PW 22/32 (21) 09:29:58 LV 158/4, 30 09:30:05 PW 24/42 (24) 09:30:05 LV 163/6, 24 09:30:18 RV 60/17, 24 09:30:18 LV 180/2, 22 09:30:24 RV 63/7, 13 09:30:24 LV 165/12, 32 09:31:56 LV 168/3, 27 09:32:02 LVp 171/3, 27 09:32:07 AOp 174/66 (97) 09:32:12 Valve Area (c P-P/ms Time AIR REST Mitral 2.72 13.1 mn/331 ms 09:30:05 Aortic 3.50 17.4 mn/136 ms 09:32:07 Type SV CO (l/m) CI (l/m/ HR Time AIR REST Thermal 125.20 6.51 2.67 52 07:08:40 Lu 112.90 5.87 2.41 52 07:08:40 Label % O2 Pres/Loc Time AIR REST AO 96 PV 10:26:07 PA 60 PA 10:26:10 Signed By Oscar Gonzales MD On 01/29/2019 10:33:04 Oscar Gonzales MD
== END 2019-01-30 13:00 | disposition home or self-care (01) ==
LOC: CLSP 06:06 → ICU 10:41
PROVIDERS: Referring Provider Internal Medicine Cardiovascular Disease; Visit Provider Internal Medicine Cardiovascular Disease
DX: I25.10 Atherosclerotic heart disease of native coronary artery without angina pectoris (principal); I10 Essential (primary) hypertension; E78.5 Hyperlipidemia, unspecified; I25.2 Old myocardial infarction; E11.9 Type 2 diabetes mellitus without complications; M19.90 Unspecified osteoarthritis, unspecified site; I27.20 Pulmonary hypertension, unspecified; R55 Syncope and collapse; Z79.82 Long term (current) use of aspirin; Z79.899 Other long term (current) drug therapy; Z87.891 Personal history of nicotine dependence; Z95.5 Presence of coronary angioplasty implant and graft; Z95.0 Presence of cardiac pacemaker
CPT/HCPCS: 36415; 71046; 80048; 80053; 80061; 82803; 82962; 85027; 85347; 85610; 85730; 92928; 93005; 93460; C1760; J7030; J7040; Q9967; C1725; C1751; C1769; C1874; C1887; C1894; C9600

== ENCOUNTER → 2019-06-15 14:08 | Outpatient (CLI) | payer MEDICARE, SELFPAY ==
[2019-01-29 13:56] VITALS: BMI 40.4
[2019-02-12 13:40] VITALS: BMI 40.3
--- NOTE | 2019-06-15 14:09 | ECHOCS_ITS ---
Reason For Study: CHF Procedure This was a 2D Doppler, Color Flow transthoracic echocardiogram. The study was technically difficult. Due to body habitus. Contrast injection was performed. Exam performed in department. Left Ventricle Severely dilated left ventricle. Moderate concentric left ventricular hypertrophy. The estimated ejection fraction is 55 %. Unable to assess diastolic dysfunction. Septal motion consistent with IVCD. Posterior-Basal: Mildly hypokinetic. Infero-Basal: Mildly hypokinetic. Right Ventricle Moderately dilated right ventricle. Normal systolic function. Atria The left atrium is severely enlarged. Normal right atrium. Normal atrial septum. Mitral Valve The mitral valve is structurally normal. No prolapse or stenosis seen. Trivial mitral valve insufficiency. Tricuspid Valve Normal tricuspid valve. Trivial tricuspid valve insufficiency. Right ventricular systolic pressure estimated to be 48 mmHg. Moderate pulmonary hypertension. Aortic Valve Trisinus/trileaflet aortic valve. Immobile non coronary cusp. Moderate diffuse aortic valve thickening. Mild restriction of the aortic valve. Mild aortic stenosis. Peak aortic valve gradient 20 mmHg. Mean aortic valve gradient 12 mmHg. Pulmonic Valve Normal pulmonic valve. Great Vessels Calcified aortic root. Normal arch. Normal inferior vena cava. Inferior vena cava collapse with sniff. Pericardium/Pleural No pericardial effusion. Medication 22 gauge I.V. with prn adaptor inserted into right arm. Diluted definity 4.0ml given slow IV push to enhance endocardial definition. MMode/2D Measurements & Calculations LVIDd: 6.3 cm IVSd: 1.5 cm LVOT diam: 2.3 cm LVIDs: 4.5 cm LVPWd: 1.2 cm RVDd: 4.1 cm FS: 27.6 % LVOT area: 4.1 cm2 Ao root diam: 3.4 cm LAV(MOD-bp): 111.5 ml LA A4 area: 30.8 cm2 LAV(MOD-bp) Indexed: 46.3 ml/m2 LAV(MOD-sp2): 101.8 ml LAV(MOD-sp4): 107.0 ml LA dimension(2D): 5.1 cm RA A4 area: 20.0 cm2 Doppler Measurements & Calculations MV E max brenna: 108.5 cm/sec Ao V2 max: 225.7 cm/sec LV V1 max: 117.8 cm/sec Ao max P.4 mmHg LV V1 max P.6 mmHg Ao V2 mean: 161.7 cm/sec LV V1 mean P.4 mmHg Ao mean P.5 mmHg LV V1 mean: 87.0 cm/sec Ao V2 VTI: 42.7 cm LV V1 VTI: 23.0 cm BRITTANY(I,D): 2.2 cm2 BRITTANY(V,D): 2.1 cm2 SV(LVOT): 94.0 ml PA V2 max: 146.2 cm/sec TR max brenna: 290.3 cm/sec TR max P.7 mmHg Interpretation Summary Severely dilated left ventricle. Moderate concentric left ventricular hypertrophy. The estimated ejection fraction is 55 %. Unable to assess diastolic dysfunction. Moderately dilated right ventricle. The left atrium is severely enlarged. Trivial mitral valve insufficiency. Trivial tricuspid valve insufficiency. Right ventricular systolic pressure estimated to be 48 mmHg. Moderate pulmonary hypertension. Immobile non coronary cusp. Mild aortic stenosis. Pt appears to be in atrial fibrillation. Compared to echo report dated 08/06/2018, LV function has remained the same, but RVSP has increased from 33 to 48 mm Hg. Ordering Physician: Oscar Gonzales Referring Physician: Ppgpantera;ec. Burt Performed By: Lynn Morales, ADAM, RVT
== END ==
PROVIDERS: Referring Provider Internal Medicine Cardiovascular Disease; Visit Provider Internal Medicine Cardiovascular Disease
DX: I27.20 Pulmonary hypertension, unspecified (principal)
CPT/HCPCS: 93306; Q9957; A4216; C8929